=== PATIENT | male | born 1950 | race Two or more races ===

== ENCOUNTER 2024-01-27 09:31 | Inpatient (IN) | payer OTHER ==
[~2024-01-27] VITALS: Ht 165.1 cm; Wt 62.3 kg
[2024-01-27] MEDS: ALBUTEROL SULF 2.5 MG/0.5ML(0.5%) NEB SOLN HHN ONE (10:00)
[2024-01-27] MEDS: IPRATROPIUM BROM 0.5 MG/2.5ML INH SOL HHN ONE (10:00)
[2024-01-27] MEDS: methylPREDNISolone SOD SUCC 125 MG/2 ML VL IV ONE (10:19)
[2024-01-27 10:28] LABS: Basophils # (auto) 0 10 ^3/uL (0-0.2); Basophils % (auto) 0.3 % (0.0-2.0); Eosinophils # (auto) 0.2 10 ^3/uL (0-0.8); Eosinophils % (auto) 1.8 % (0.0-7.0); Hematocrit 37.3 % (41.0-53.0); Hemoglobin 12.4 g/dL (13.5-17.5); Lymphocytes # (auto) 2.4 10 ^3/uL (0.4-5.4); Lymphocytes % (auto) 23.7 % (10.0-50.0); Mean Corpuscular Hemoglobin 29.6 pg (28.0-32.0); Mean Corpuscular Hgb Conc. 33.3 g/dL (32.0-36.0); Monocytes # (auto) 0.6 10 ^3/uL (0-1.3); Monocytes % (auto) 5.5 % (0.0-12.0); Neutrophils # (auto) 6.9 10 ^3/uL (1.6-8.6); Neutrophils % (auto) 68.7 % (37.0-80.0); Red Blood Cells 4.19 10^6/uL (4.5-5.90); Red Cell Distribution Width 17.5 % (11.8-14.3); White Blood Cell 10.1 10^3/uL (4.4-10.8)
[2024-01-27 10:29] VITALS: RESP 22; O2SAT 96
[2024-01-27 10:30] VITALS: PULSE 75; RESP 22; O2SAT 95
[2024-01-27 10:44] LABS: Chloride 113 mmol/L (98-107); Sodium 139 mmol/L (136-145)
[2024-01-27 10:45] LABS: Anion Gap 6 (5-15); Carbon Dioxide 20 mmol/L (20-30)
[2024-01-27 10:46] LABS: Calcium 9.6 mg/dL (8.5-10.1)
[2024-01-27 10:50] LABS: BUN/Creatinine Ratio 22.3 (10.0-20.0); Blood Urea Nitrogen 21 mg/dL (9-23); Glucose 100 mg/dL (74-106)
[2024-01-27 11:03] LABS: Lactic Acid w/Reflex 2.8 mmol/L (0.4-2.0)
[2024-01-27] MEDS: LORazepam 0.5 MG TAB PO ONE (11:14)
[2024-01-27] MEDS: ONDANSETRON HCL 4 MG/2 ML VIAL IV ONE (11:45)
[2024-01-27] MEDS: SODIUM CHLORIDE 0.9% 1,850 ML IV ONE (13:00)
[2024-01-27] MEDS: levoFLOXacin 500MG 100 ML IV ONE (13:30)
[2024-01-27] MEDS: VANCOMYCIN 1GM/200ML 200 ML IV ONE (14:16)
[2024-01-27 14:17] LABS: COVID19 ANTIGEN SOFIA FIA NEGATIVE (NEGATIVE); Rapid Influenza A Negative (Negative); Rapid Influenza B Negative (Negative)
[2024-01-27] MEDS ORDERED: ONDANSETRON HCL 4 MG/2 ML VIAL IV PRN (16:30)
[2024-01-27] MEDS ORDERED: DOCUSATE SOD 100 MG CAP PO PRN (16:30)
[2024-01-27] MEDS ORDERED: NITROGLYCERIN 0.4 MG SL TAB SL PRN (16:30)
[2024-01-27] MEDS ORDERED: MORPHINE SULFATE INJ 2 MG/ml SYRG IV PRN (16:30)
[2024-01-27] MEDS: ALBUTEROL SULF 2.5 MG/0.5ML(0.5%) NEB SOLN NEB ONE (16:49)
[2024-01-27] MEDS: IPRATROPIUM BROM 0.5 MG/2.5ML INH SOL NEB ONE (16:49)
[2024-01-27] MEDS: guaiFENesin-CODEINE Liq 5 ML UD PO ONE (17:44)
[2024-01-27] MEDS: ENOXAPARIN SOD 40 MG/0.4 ML SYRINGE SC SCH (17:44)
[2024-01-27 18:25] VITALS: BP 137/75; PULSE 66; RESP 20; TEMP 97.7; O2SAT 92
[2024-01-27] MEDS: SODIUM CHLORIDE 0.9% 1,000 ML IV SCH (19:16)
[2024-01-27 21:00] VITALS: BP 143/74; PULSE 60; RESP 18; TEMP 97.5; O2SAT 95
[2024-01-27 21:13] VITALS: BP 134/75; PULSE 76; RESP 20; O2SAT 92
[2024-01-27] MEDS ORDERED: LORA-1121 PO (21:22)
[2024-01-27] MEDS ORDERED: ESCI1TAB37 PO (21:22)
[2024-01-27] MEDS ORDERED: MELO15TA29 PO (21:27)
[2024-01-27] MEDS ORDERED: ASPI1TAB20 PO (21:27)
[2024-01-27] MEDS ORDERED: GABA-1250 PO (21:27)
[2024-01-27] MEDS ORDERED: TAMS0.4C36 PO (21:27)
[2024-01-27] MEDS ORDERED: SENN-199 PO (21:28)
[2024-01-27] MEDS ORDERED: TRAM50TA2 PO (21:29)
[2024-01-27] MEDS ORDERED: FENT25DI2 TD (21:36)
[2024-01-27] MEDS ORDERED: OXYB3.9D TD (21:39)
[2024-01-27] MEDS: guaiFENesin-CODEINE Liq 5 ML UD PO PRN (23:58)
[2024-01-28] VITALS (10 sets, daily range): BP systolic 120–165; BP diastolic 60–90; PULSE 51–78; RESP 16–22; TEMP 97.8–98; O2SAT 96–99
[2024-01-28] MEDS: IPRATROPIUM BROM 0.5 MG/2.5ML INH SOL NEB PRN (00:21)
[2024-01-28] MEDS: ALBUTEROL SULF 2.5 MG/0.5ML(0.5%) NEB SOLN NEB PRN (00:21)
[2024-01-28] MEDS: LORazepam 0.5 MG TAB PO ONE (03:35)
[2024-01-28] MEDS: MORPHINE SULFATE INJ 2 MG/ml SYRG IV PRN (05:45)
[2024-01-28 07:22] LABS: Basophils # (auto) 0 10 ^3/uL (0-0.2); Basophils % (auto) 0.2 % (0.0-2.0); Eosinophils # (auto) 0 10 ^3/uL (0-0.8); Lymphocytes # (auto) 1.8 10 ^3/uL (0.4-5.4); Lymphocytes % (auto) 19.3 % (10.0-50.0); Mean Corpuscular Hgb Conc. 33.4 g/dL (32.0-36.0); Mean Corpuscular Volume 86.9 fL (80.0-100.0); Monocytes % (auto) 10.7 % (0.0-12.0); Neutrophils # (auto) 6.4 10 ^3/uL (1.6-8.6); Neutrophils % (auto) 69.8 % (37.0-80.0); Nucleated Red Blood Cells % 0.1 %; Red Blood Cells 3.45 10^6/uL (4.5-5.90); Red Cell Distribution Width 17.3 % (11.8-14.3); White Blood Cell 9.1 10^3/uL (4.4-10.8)
[2024-01-28 07:50] LABS: Alanine Aminotransferase 31 U/L (7-40); Albumin 3.6 g/dL (3.2-4.8); Alkaline Phosphatase 53 U/L (46-116); Anion Gap 7 (5-15); Aspartate Aminotransferase 33 U/L (13-40); Bilirubin, Total 0.3 mg/dL (0.2-1.0); Blood Urea Nitrogen 14 mg/dL (9-23); Calcium 9.1 mg/dL (8.5-10.1); Carbon Dioxide 18 mmol/L (20-30); Chloride 115 mmol/L (98-107); Glucose 83 mg/dL (74-106); Sodium 140 mmol/L (136-145)
[2024-01-28] MEDS: LORazepam 0.5 MG TAB PO PRN (10:48)
[2024-01-28] MEDS: levoFLOXacin 500MG 100 ML IV SCH (10:49)
[2024-01-28] MEDS ORDERED: MIRT-93 PO (12:00)
[2024-01-28] MEDS ORDERED: DORZ2SOL18 EACHEYE (12:00)
[2024-01-28] MEDS ORDERED: ATOR-47 PO (12:00)
[2024-01-28] MEDS ORDERED: LATA0.008 EACHEYE (12:00)
[2024-01-28] MEDS ORDERED: traMADol HCL 50 MG TAB PO PRN (12:30)
[2024-01-28] MEDS ORDERED: LORazepam 0.5 MG TAB PO PRN (12:30)
[2024-01-28] MEDS: PIPERACILLIN-TAZOB 3.375GM 100 ML IV SCH (15:28)
[2024-01-28] MEDS: GABAPENTIN 300 MG CAP PO SCH (15:28)
[2024-01-28] MEDS: TAMSULOSIN HYDROCHLORIDE 0.4 MG CAP PO SCH (18:08)
[2024-01-28] MEDS: OXYBUTYNIN CHL 5 MG TAB PO SCH (22:12)
[2024-01-28] MEDS: ATORVASTATIN 20 MG TAB PO SCH (22:12)
[2024-01-28] MEDS: MIRTAZAPINE 30 MG TAB PO SCH (22:13)
[2024-01-29] VITALS (8 sets, daily range): BP systolic 103–131; BP diastolic 52–74; PULSE 47–59; RESP 16–22; TEMP 97.8–98.7; O2SAT 96–100
[2024-01-29] MEDS: CITALOPRAM HYDROBR 20 MG TAB PO SCH (10:20)
[2024-01-29] MEDS: ASPirin 81 mg TAB PO SCH (10:21)
[2024-01-29 15:24] LABS: Urine Bacteria None Seen /hpf (None Seen); Urine Blood Negative /uL (Negative); Urine Clarity Clear (Clear); Urine Color Light-Yellow (Yellow); Urine Protein, UAD Negative (Negative); Urine Specific Gravity 1.015 (1.001-1.035); Urine Urobilinogen Normal (Negative); Urine WBC 1 /hpf (0 - 3)
[2024-01-30] VITALS (11 sets, daily range): BP systolic 123–148; BP diastolic 64–86; PULSE 56–97; RESP 15–18; TEMP 97.5–98.3; O2SAT 96–99
[2024-01-31] VITALS (10 sets, daily range): BP systolic 133–146; BP diastolic 68–97; PULSE 57–77; RESP 16–20; TEMP 36.6; O2SAT 95–99
== END 2024-01-31 17:56 | DRG 871 ==
LOC: ER 09:31 → EDBD 09:31 → OVERFLOW 16:24 → WEST WING 17:58
PROVIDERS: ADMIT Nurse Practitioner Family; ATTEND Family Medicine
DX: A41.9 Sepsis, unspecified organism (principal); J18.9 Pneumonia, unspecified organism; J96.01 Acute respiratory failure with hypoxia; R65.21 Severe sepsis with septic shock; E44.0 Moderate protein-calorie malnutrition; E78.5 Hyperlipidemia, unspecified; F12.10 Cannabis abuse, uncomplicated; I10 Essential (primary) hypertension; I73.9 Peripheral vascular disease, unspecified; K74.60 Unspecified cirrhosis of liver; Z20.822 Contact with and (suspected) exposure to COVID-19; F32.A Depression, unspecified; Z68.22 Body mass index [BMI] 22.0-22.9, adult; Z87.891 Personal history of nicotine dependence; Z98.1 Arthrodesis status; M48.02 Spinal stenosis, cervical region
CPT/HCPCS: 36415; 71045; 72125; 80048; 80053; 81001; 82140; 83605; 83880; 84484; 85025; 87040; 87070; 87086; 87205; 87426; 87804; 93005; 94640; 97110; 97116; 97163; 97530; G0378; J1956; J2543